=== PATIENT | male | born 1995 | race Caucasian/White ===

== ENCOUNTER 2018-02-01 22:48 | Emergency (ER) | payer SELFPAY ==
--- NOTE | 2018-02-01 23:42 | ED PDOC ---
HPI: Psych/Substance Abuse Chief Complaint (Provider): etoh History Per: Patient, EMS Additional Complaint(s): 22 y/o male brought in by EMS for public intoxication. Patient awake, admits to drinking tonight; denies acute medical or psychiatric complaints <Katarina Stout - Last Filed: 02/02/18 04:51> <Argelia Rascon - Last Filed: 02/02/18 06:23> Time Seen by Provider: 02/01/18 23:16 Chief Complaint (Nursing): Alcohol Ingestion Past Medical History Reviewed: Historical Data, Nursing Documentation, Vital Signs Vital Signs: Last Vital Signs Temp 98.1 F 02/01/18 22:50 Pulse 91 H 02/01/18 22:50 Resp 20 02/01/18 22:50 BP 137/87 02/01/18 22:50 Pulse Ox 97 02/01/18 22:50 - Medical History PMH: No Chronic Diseases - Surgical History Surgical History: No Surg Hx - Family History Family History: States: Unknown Family Hx - Immunization History Hx Tetanus Toxoid Vaccination: No Hx Influenza Vaccination: No Hx Pneumococcal Vaccination: No <Katarina Stout - Last Filed: 02/02/18 04:51> Vital Signs: Last Vital Signs Temp 98.1 F 02/01/18 22:50 Pulse 91 H 02/01/18 22:50 Resp 20 02/01/18 22:50 BP 137/87 02/01/18 22:50 Pulse Ox 97 02/02/18 04:56 <Argelia Rascon - Last Filed: 02/02/18 06:23> - Home Medications Home Medications: Ambulatory Orders Medication Instructions Recorded No Known Home Med 08/25/14 - Allergies Allergies/Adverse Reactions: Allergies Allergy/AdvReac Type Severity Reaction Status Date / Time No Known Allergies Allergy Unverified 02/01/18 22:50 Review of Systems ROS Statement: Except As Marked, All Systems Reviewed And Found Negative <Katarina Stout - Last Filed: 02/02/18 04:51> Physical Exam - Reviewed Nursing Documentation Reviewed: Yes Vital Signs Reviewed: Yes - Physical Exam Appears: Positive for: Well, Non-toxic, No Acute Distress Head Exam: Positive for: ATRAUMATIC, NORMAL INSPECTION, NORMOCEPHALIC Skin: Positive for: Normal Color Eye Exam: Positive for: Normal appearance ENT: Positive for: Normal ENT Inspection Cardiovascular/Chest: Positive for: Regular Rate, Rhythm Respiratory: Positive for: Normal Breath Sounds Gastrointestinal/Abdominal: Positive for: Normal Exam Back: Positive for: Normal Inspection Extremity: Positive for: Normal ROM Neurologic/Psych: Positive for: Alert, Oriented (x2) <Katarina Stout - Last Filed: 02/02/18 04:51> - ECG O2 Sat by Pulse Oximetry: 97 - Progress ED Course And Treament: Patient attempting to get out stretcher and walk in hallway with unsteady gait; escorted back to bed. Patient again out of stretcher. Security at bedside Patient unwilling to comply with alternative measures offered; restraints and Ativan IM ordered 1:30 Patient sleeping; no distress 3:00 Patient sleeping; no distress 4:30 Patient sleeping; no distress <Katarina Stout C - Last Filed: 02/02/18 04:51> Medical Decision Making Medical Decision Makin Patient at this time clinically sober, ambulatory in ED, and aaox3. He is tolerating PO withou deficit and is stable for discharge home. <Argelia Rascon - Last Filed: 02/02/18 06:23> Disposition - Disposition Disposition Time: 05:00 Patient Signed Over To: Argelia Rascon Handoff Comments: p'ing sobriety <Katarina Stout - Last Filed: 02/02/18 04:51> <Argelia Rascon - Last Filed: 02/02/18 06:23> - Clinical Impression Clinical Impression: Alcohol intoxication, Alcohol abuse with alcohol-induced disorder - Disposition Condition: STABLE Additional Instructions: Follow up with primary doctor for drug/alcohol rehabilitation. Instructions: Alcohol Abuse and Alcoholism (DC), Effects of Alcohol on Your Health Forms: [employer] ([place]) Print Language: SPANISH
[2018-02-02 06:46] VITALS: BP 131/84; PULSE 84; RESP 18; TEMP 98.5; O2SAT 99
== END 2018-02-02 06:46 | disposition home or self-care (01) ==
LOC: H.ER 22:48
DX: F10.129 Alcohol abuse with intoxication, unspecified (principal)
CPT/HCPCS: 82948; 96372; 99282; G0480; J2060